=== PATIENT | male | born 1995 | race Caucasian/White ===

== ENCOUNTER 2019-11-20 03:31 | Emergency (ER) | payer BC, SELFPAY ==
[2019-11-20 03:52] VITALS: BP 130/82; PULSE 77; RESP 18; TEMP 36.7; O2SAT 100
[2019-11-20 04:08] LABS: Alanine Aminotransferase 25 U/L (4-50); Albumin Level 4.7 g/dL (3.5-5.1); Alkaline Phosphatase 61 U/L (38-126); Aspartate Amino Transferase 24 U/L (17-59); Bilirubin,Total 0.7 mg/dL (0.2-1.3); Blood Urea Nitrogen 14 mg/dL (9-20); Calcium 9.4 mg/dL (8.4-10.2); Carbon Dioxide 29 mmol/L (22-30); Chloride 101 mmol/L (98-107); Estimated CRCL calculation 106 ml/min; Estimated Glomerular Filt Rate > 60; Glucose 119 mg/dL (75-110); Potassium 3.7 mmol/L (3.4-5.0); Sodium 137 mmol/L (137-145)
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
--- NOTE | 2019-11-20 04:46 | PC.NURSE ---
charge nurse informed pt that his girlfriend would have to wait outside because of visitor policy of only one visitor in room and no changing out. pt became upset and stated he wanted to sign out. Dr. Huynh explained needs to pt for CT and poss further treatments. pt still declined to stay. pt signrd AMA paperwork and ambulated out of ER without difficulty.
[2019-11-20 04:49] VITALS: BP 124/73; PULSE 88; RESP 16; TEMP 36.8; O2SAT 100
== END 2019-11-20 04:50 | disposition left against medical advice (07) ==
PROVIDERS: Emergency Provider Emergency Medicine
DX: S00.93XA Contusion of unspecified part of head, initial encounter (principal); S50.311A Abrasion of right elbow, initial encounter; S40.211A Abrasion of right shoulder, initial encounter; V86.66XA Passenger of dirt bike or motor/cross bike injured in nontraffic accident, initial encounter
CPT/HCPCS: 36415; 80053; 99283

== ENCOUNTER 2023-10-30 12:07 | Emergency (ER) | payer BC, SELFPAY ==
--- NOTE | ~2023-10-30 | CT_ITS ---
EXAMINATION: CT facial bones w con DATE: 10/30/2023 14:37 INDICATION: Dental abscess. TECHNIQUE: Computed tomography (CT) of the facial bones and maxillofacial region was performed with 7 5 mL Omnipaque 350 intravenous contrast. Automated exposure control and iterative reconstruction tech [employer] were employed. The dose-length product was 602.34 mGy-cm. COMPARISON: None. FINDINGS: The orbits are normal. There is mild mucosal thickening in the paranasal sinuses. There is a carious lesion of tooth 7 with periapical lucencies and breech of the buccal cortex of the alveolar process with 6 x 2 mm subperiosteal abscess. There is a carious lesion of tooth 19. IMPRESSION: 1. Carious lesion of tooth 7 with periapical lucencies, breech of the buccal cortex of the alveolar p rocess, and small subperiosteal abscess. 2. Carious lesion of tooth 19. Reviewed, dictated and finalized at location A. IMPRESSION: 1. Carious lesion of tooth 7 with periapical lucencies, breech of the buccal co rtex of the alveolar process, and small subperiosteal abscess. 2. Carious lesion of tooth 19.
[2023-10-30 12:14] VITALS: BP 154/96; PULSE 113; RESP 16; TEMP 36.7; O2SAT 99
--- NOTE | 2023-10-30 13:39 | ED.DENTAL ---
HPI - Dental/Oral General Chief complaint: Dental/Oral Stated complaint: infected tooth Time Seen by Provider: 10/30/23 13:07 Source: patient Mode of arrival: ambulatory Limitations: no limitations History of Present Illness HPI Narrative: Keegan is a 28-year-old male patient presenting to the emergency room today with complaints of a possible dental infection. He reports he has swelling to the right upper maxilla. Has a fractured tooth right upper incisor-was seen it at [facility] urgent care on Thursday and given prescription for amoxicillin. States that the swelling and pain is getting worse. He denies any fever or chills. Related Data Allergies Allergy/AdvReac Type Severity Reaction Status Date / Time No Known Allergies Allergy Verified 10/30/23 12:28 Review of Systems Review of Systems: Pertinent positives per HPI. Patient denies any fever, chills, rash, headache, visual changes, dizziness, cough, runny nose, sore throat, shortness of breath, chest pain, palpitations, nausea, vomiting, diarrhea, constipation, abdominal pain, or any urinary issues. [facility] Past Medical History Medical History Patient denies significant medical history Social History Social History Smoking status: Current every day smoker Comments At the time of my signature, I reviewed and agree with the nursing past medical, surgical, social, and family history. There is no relevant family history pertinent to the patient complaint. Exam Narrative: General: Well-developed, well nourished, in no apparent distress Head: Normocephalic, atraumatic Eyes: Pupils equally round and reactive to light bilaterally, EOM intact, sclera and conjunctive clear, no discharge, lids normal Ears: TMs intact and clear, ear canals clear, no drainage, grossly hearing normal. Nose: Nares patent, no discharge, no inflammation, no sinus tenderness. Mouth: Oropharynx without lesions or masses, poor dentition, MMM. Gingival swelling to the right upper gum with fractured tooth mild palpation-questionable abscess, tender to us to palpation with mild swelling over the right maxilla compared to the left Neck: Supple, trachea midline, no enlargement of anterior or posterior cervical nodes, no thyroid masses or goiter palpable. Cardio: Regular rate and rhythm, s1 and s2 normal, no murmur appreciated. Resp: Clear to auscultation bilaterally anteriorly and posteriorly, no rhonchi, rales, wheezing or rubs Course Course Emergency Course: Portions of this record may have been created with voice recognition software. Vital Signs Vital signs: Vital Signs Temperature 36.7 C 10/30/23 12:14 Pulse Rate 113 H 10/30/23 12:14 Respiratory Rate 16 10/30/23 12:14 Blood Pressure 154/96 H 10/30/23 12:14 Pulse Oximetry 99 10/30/23 12:14 Temperature 36.7 C 10/30/23 12:14 Pulse Rate 113 H 10/30/23 12:14 Respiratory Rate 16 10/30/23 12:14 Blood Pressure 154/96 H 10/30/23 12:14 Pulse Oximetry 99 10/30/23 12:14 Vital signs reviewed Procedures Abscess I/D Dental abscess: Date of Incision: 10/30/23 Time of Incision: 15:45 Side (if applicable): right Local Anesthetic: lidocaine 1% Amount of anesthesia used (mL): 0.05 Technique: needle aspiration Amount of fluid expressed (mL): 0.5 Irrigation: No Packing used?: none I&D Results: Pus and Blood Abcess I&D Additional Comments: Dental abscess was injected using 0.5 mL of lidocaine without epi. Patient tolerated fair. An 18 gauge needle was then used to aspirate abscess. 0.5 mL of pus was expressed. Patient tolerated fair. MDM - Dental/Oral MDM Narrative Medical decision making narrative: At the time of visit patient is resting comfortably on the exam table. Patient appears to be nontoxic. Labs: CBC shows wh
[2023-10-30 14:01] LABS: Basophils Absolute Auto 0.1 K/mm3 (0.0-0.1); Basophils Percent Auto 0.4 % (0.2-1.2); Eosinophils Absolute Auto 0.5 K/mm3 (0-0.3); Eosinophils Percent Auto 3.5 % (0-4.4); Hematocrit 56.5 % (42.0-52.0); Hemoglobin 18.4 g/dL (14.0-18.0); Immature Granulocyte Absolute 0.07 K/mm3 (0.00-0.031); Immature Granulocyte Percent A 0.5 % (0-0.5); Lymphocytes Absolute Auto 2.85 K/mm3 (0.9-3.2); Lymphocytes Percent Auto 22.2 % (18.3-44.2); Mean Corpuscular HGB Conc 32.6 g/dl (32-36); Mean Corpuscular Hemoglobin 28.7 pg (26-34); Mean Corpuscular Volume 88.1 fl (80-100); Mean Platelet Volume 10.6 fl (7.4-10.4); Monocytes Absolute Auto 1.1 K/mm3 (0.1-0.6); Monocytes Percent Auto 8.2 % (2.6-8.5); Neutrophils Absolute Auto 8.4 K/mm3 (1.3-6.7); Neutrophils Percent Auto 65.2 % (45.5-73.1); Platelet Count Result 229 k/mm3 (150-375); Red Blood Count 6.41 M/mm3 (4.6-6.20); Red Cell Distribution Width 14.1 % (11.5-14.5); White Blood Count 12.8 K/mm3 (4.5-10.0)
[2023-10-30 14:14] LABS: Alanine Aminotransferase 24 U/L (6-50); Albumin Level 4.6 g/dL (3.5-5.1); Alkaline Phosphatase 54 U/L (38-126); Anion Gap 8 mmol/L (4-12); Aspartate Amino Transferase 32 U/L (17-59); Bilirubin,Total 0.7 mg/dL (0.2-1.3); Blood Urea Nitrogen 15 mg/dL (9-20); Calcium 9.1 mg/dL (8.4-10.2); Carbon Dioxide 27 mmol/L (22-30); Chloride 101 mmol/L (98-107); Estimated CRCL calculation 126 ml/min; Estimated Glomerular Filt Rate > 60; Glucose 100 mg/dL (65-110); Potassium 4.3 mmol/L (3.4-5.0); Sodium 136 mmol/L (137-145)
[2023-10-30] MEDS: CLINDAMYCIN 600 MG/D5W 50 ML 600 MG/50 ML PIGGYBACK 100 MG IVPB (16:07)
[2023-10-30] MEDS: IBUPROFEN 400 MG TABLET 800 MG PO (16:07)
[2023-10-30 16:32] VITALS: BP 168/99; PULSE 99; RESP 20; O2SAT 94
== END 2023-10-30 16:34 | disposition home or self-care (01) ==
PROVIDERS: Emergency Provider Nurse Practitioner Family
DX: K04.7 Periapical abscess without sinus (principal); F17.200 Nicotine dependence, unspecified, uncomplicated
CPT/HCPCS: 36415; 41800; 70487; 80053; 85025; 96365; 99284; A9270; Q9967

== ENCOUNTER 2024-12-12 19:59 | Emergency (ER) | payer BC, SELFPAY ==
--- NOTE | ~2024-12-12 | CT_ITS ---
EXAMINATION: CT facial bones wo con DATE: 12/12/2024 21:01 INDICATION: nasal trauma . TECHNIQUE: Computed tomography (CT) of the facial bones and maxillofacial region was performed withou t intravenous contrast. Automated exposure control and iterative reconstruction technique were employ ed. The dose-length product was 820.78 mGy-cm. COMPARISON: 10/30/2023. FINDINGS: Soft Tissues: Soft tissue swelling and subcutaneous gas over the nose. Facial bones: Nondisplaced fractures of the bilateral nasal bones. Nondisplaced fractures of the ant erosuperior and posterior inferior osseous nasal septum. No lytic or blastic process. Eyes: The globes are intact. The soft tissue planes of the orbits are maintained. Paranasal Sinuses: The visualized aerated spaces are clear. Foreign Bodies: No radiopaque foreign bodies. Other Findings: Periodontal disease. IMPRESSION: Nondisplaced fractures of the bilateral nasal bones and osseous nasal septum. Reviewed, dictated and finalized at location K.
--- OUTSIDE RECORDS SUMMARY | 2024-12-12 20:02 | XMS_ITS | Clinical Summary ---
Author Organization [facility] Address [address] [place] [address] Care Team Providers Care Pool Lifeguard Name Role Phone Unknown, Notinfile Primary Care Provider Unavail able Allergies No known active allergies Medications No known medications Active Problems No known active problems Medical History Medical History Date Comments Seizure (HCC) Adhd Social History Tobacco Use Types Packs/Day Years Used Date Smoking Tobacco: Every Day Cigarettes Tobacco Cessation:Ready to Q uit: Not Asked; Counseling Given: Not Answered Alcohol Use Standard Drinks/Week Comments Yes 0 (1 standard drink = 0.6 oz pur e alcohol) occasionally Personal Safety Answer Date Recorded Have you ever been in or are you currently in a harmful physical or emotional relationship or is someone making you feel afraid or unsafe? Denies 05/06/2023 Sex and Gender Information Value Date Recorded Sex Assigned at Not on file Legal Sex Male 10:59 AM CDT Gender Identity Not on file Sexual Orientation Not on file Obstetrics History Last Filed Vital Signs Vital Sign Reading Time Taken Comments Blood Pressure 135/104 05/06/2023 8:47 AM MEETING MANAGER Pulse 63 05/06/2023 8:47 AM MEETING MANAGER Temperature 36.9 C (98.4 F) 05/06/2023 8:47 AM MEETING MANAGER Respiratory Rate 16 05/06/2023 8:47 AM MEETING MANAGER Oxygen Saturation 96% 05/06/2023 8:47 AM MEETING MANAGER Inhaled Oxygen Concentration - - Weight 90.7 kg (200 lb) 05/06/2023 8:47 AM MEETING MANAGER Height 172.7 cm (5' 8) 05/06/2023 8:47 AM MEETING MANAGER Body Mass Index 30.41 05/06/2023 8:47 AM MEETING MANAGER Plan of Treatment Health Maintenance Due Date Last Done Comments Depression Screening 1995 Hepatitis C Screening 1995 Regular Well Visit/Exam 18-64 2013 HPV Vaccines (3 - Male 3-dos e series) 01/20/2014 10/28/2013, 07/24/2010 Pneumococcal vaccine <65 (1 of 2 - PCV) 2014 DTaP/Tdap/Td Vaccine (8 - Td or Tdap) 08/27/2022 08/27/2012, 07/24/2010, 03/01/2007, Additional history exists Influenza Vaccine (Season Ended) 2025 Hepatitis B Screening Completed 1995 , 1995, 1995 Varicella Vaccines Completed 08/27/2012, 07/06/1996 Insurance PLAN PLAN Care Teams Pool Lifeguard Relationship Specialty Start Date End Date Unknown, Notinfile PCP - General 12/21/19
--- OUTSIDE RECORDS SUMMARY | 2024-12-12 20:02 | XMS_ITS | Referral Summary ---
Author Organization [facility] Address [address] [place] [address] Care Team Providers Care Auger Operator Name Role Phone Unknown, Notinfile Primary Care Provider Unavail able Allergies No known active allergies Medications No known medications Active Problems No known active problems Social History Tobacco Use Types Packs/Day Years [...] on file Sexual Orientation Not on file Last Filed Vital Signs Vital Sign Reading Time Taken Comments Blood Pressure 135/104 05/06/2023 8:47 AM LINUX SYSTEM ADMINISTRATOR Pulse 63 05/06/2023 8:47 AM LINUX SYSTEM ADMINISTRATOR Temperature 36.9 C (98.4 F) 05/06/2023 8:47 AM LINUX SYSTEM ADMINISTRATOR Respiratory Rate 16 05/06/2023 8:47 AM LINUX SYSTEM ADMINISTRATOR Oxygen Saturation 96% 05/06/2023 8:47 AM LINUX SYSTEM ADMINISTRATOR Inhaled Oxygen Concentration - - Weight 90.7 kg (200 lb) 05/06/2023 8:47 AM LINUX SYSTEM ADMINISTRATOR Height 172.7 cm (5' 8) 05/06/2023 8:47 AM LINUX SYSTEM ADMINISTRATOR Body Mass Index 30.41 05/06/2023 8:47 AM LINUX SYSTEM ADMINISTRATOR Plan of Treatment Not on file Insurance [place] [address] [address] [place] [address] PLAN Care Teams Auger Operator Relationship Specialty Start Date End Date Unknown, Notinfile PCP - General 12/21/19
--- OUTSIDE RECORDS SUMMARY | 2024-12-12 20:02 | XMS_ITS | Clinical Summary ---
Author Organization [facility] Address [address] [place] [address] Care Team Providers Care Head Mva Reactor Operator Name Role Phone None, Provider MD Primary Care Provider Unavaila ble Allergies No known active allergies Social History Tobacco Use Types Packs/Day Years Used Date Smoking Tobacco: Never Assessed Sex and Gender Information Value Date Recorded Sex Assigned at Not on file Legal Sex Male 5:53 PM REMEDIAL TEACHER Gender Identity Not on file Sexual Orientation Not on file Last Filed Vital Signs Vital Sign Reading Time Taken Comments Blood Pressure 134/71 05/20/2022 10:24 PM REMEDIAL TEACHER Pulse 92 05/20/2022 10:24 PM REMEDIAL TEACHER Temperature 36.8 C (98.2 F) 05/20/2022 10:24 PM REMEDIAL TEACHER Respiratory Rate 18 05/20/2022 10:24 PM REMEDIAL TEACHER Oxygen Saturation 97% 05/20/2022 10:24 PM REMEDIAL TEACHER Inhaled Oxygen Concentration - - Weight 99.8 kg (220 lb 0.3 oz) 05/20/2022 10:24 PM REMEDIAL TEACHER Height 175.3 cm (5' 9) 05/20/2022 10:24 PM REMEDIAL TEACHER Body Mass Index 32.49 05/20/2022 10:24 PM REMEDIAL TEACHER Plan of Treatment Health Maintenance Due Date Last Done Comments Annual Physical 1998 Hepatitis C 2013 HPV Vaccines (3 - Male 3-dose series) 01/20/2014 10/28/2013, 07/24/2010 DTaP, Tdap and Td Vaccines (4 - Td or Tdap) 08/27/2022 08/27/2012, 07/24/2010, 03/01/2007, Additional history exists COVID-19 Vaccine ( season) 2024 Hepatitis B Vaccines Completed 1995, 1995, 1995 Meningococcal Vaccine Completed 08/27/2012 , 07/24/2010, 03/01/2007 Meningococcal B Vaccine Aged Out No l onger eligible based on patient's age to complete this topic Pneumococcal Vaccine: Pediatrics (0 to 5 Years) and At-Risk Patients (6 to 49 Years) Aged Out No longer eligible based on patient's age to complete this topic RSV Immunizations Under 20 Months Aged Out No longer eligible based on patient's age to complete this topic Insurance [address] [address] Care Teams Head Mva Reactor Operator Relationship Specialty Start Date End Date None, Provider, PCP - General UNKNOWN PHYSICIAN SPECIALTY 05/20/22
[2024-12-12 20:04] VITALS: BP 164/96; PULSE 101; RESP 18; TEMP 36.6; O2SAT 97
--- OUTSIDE RECORDS SUMMARY | 2024-12-12 20:58 | XMS_ITS | Clinical Summary ---
Author Organization [facility] Address [address] [place] [address] Care Team Providers Care Automatic Presser Name Role Phone Unknown, Notinfile Primary Care [...] Comments Blood Pressure 135/104 05/06/2023 8:47 AM WEB PRESS ROLL TENDER Pulse 63 05/06/2023 8:47 AM WEB PRESS ROLL TENDER Temperature 36.9 C (98.4 F) 05/06/2023 8:47 AM WEB PRESS ROLL TENDER Respiratory Rate 16 05/06/2023 8:47 AM WEB PRESS ROLL TENDER Oxygen Saturation 96% 05/06/2023 8:47 AM WEB PRESS ROLL TENDER Inhaled Oxygen Concentration - - Weight 90.7 kg (200 lb) 05/06/2023 8:47 AM WEB PRESS ROLL TENDER Height 172.7 cm (5' 8) 05/06/2023 8:47 AM WEB PRESS ROLL TENDER Body Mass Index 30.41 05/06/2023 8:47 AM WEB PRESS ROLL TENDER Plan of Treatment Health Maintenance Due Date [...] 08/27/2012, 07/06/1996 Insurance PLAN PLAN Care Teams Automatic Presser Relationship Specialty Start Date End Date Unknown, Notinfile PCP - General 12/21/19
--- OUTSIDE RECORDS SUMMARY | 2024-12-12 20:58 | XMS_ITS | Referral Summary ---
Author Organization [facility] Address [address] [place] [address] Care Team Providers Care Planer Setter Name Role Phone Unknown, Notinfile Primary Care [...] Comments Blood Pressure 135/104 05/06/2023 8:47 AM RING ROLLING MACHINE OPERATOR Pulse 63 05/06/2023 8:47 AM RING ROLLING MACHINE OPERATOR Temperature 36.9 C (98.4 F) 05/06/2023 8:47 AM RING ROLLING MACHINE OPERATOR Respiratory Rate 16 05/06/2023 8:47 AM RING ROLLING MACHINE OPERATOR Oxygen Saturation 96% 05/06/2023 8:47 AM RING ROLLING MACHINE OPERATOR Inhaled Oxygen Concentration - - Weight 90.7 kg (200 lb) 05/06/2023 8:47 AM RING ROLLING MACHINE OPERATOR Height 172.7 cm (5' 8) 05/06/2023 8:47 AM RING ROLLING MACHINE OPERATOR Body Mass Index 30.41 05/06/2023 8:47 AM RING ROLLING MACHINE OPERATOR Plan of Treatment Not on file [place] [address] [place] [address] PLAN Care Teams Planer Setter Relationship Specialty Start Date End Date Unknown, Notinfile PCP - General 12/21/19
--- OUTSIDE RECORDS SUMMARY | 2024-12-12 20:58 | XMS_ITS | Clinical Summary ---
Author Organization [facility] Address [address] [place] [id number] Care Team Providers Care Patent Prosecution Attorney Name Role Phone None, Provider MD Primary Care Provider Unavaila ble Allergies No known active allergies Social History Tobacco Use Types Packs/Day Years Used Date Smoking Tobacco: Never Assessed Sex and Gender Information Value Date Recorded Sex Assigned at Not on file Legal Sex Male 5:53 PM AFLOAT CRYPTOLOGIC MANAGER Gender Identity Not on file Sexual Orientation Not on file Last Filed Vital Signs Vital Sign Reading Time Taken Comments Blood Pressure 134/71 05/20/2022 10:24 PM AFLOAT CRYPTOLOGIC MANAGER Pulse 92 05/20/2022 10:24 PM AFLOAT CRYPTOLOGIC MANAGER Temperature 36.8 C (98.2 F) 05/20/2022 10:24 PM AFLOAT CRYPTOLOGIC MANAGER Respiratory Rate 18 05/20/2022 10:24 PM AFLOAT CRYPTOLOGIC MANAGER Oxygen Saturation 97% 05/20/2022 10:24 PM AFLOAT CRYPTOLOGIC MANAGER Inhaled Oxygen Concentration - - Weight 99.8 kg (220 lb 0.3 oz) 05/20/2022 10:24 PM AFLOAT CRYPTOLOGIC MANAGER Height 175.3 cm (5' 9) 05/20/2022 10:24 PM AFLOAT CRYPTOLOGIC MANAGER Body Mass Index 32.49 05/20/2022 10:24 PM AFLOAT CRYPTOLOGIC MANAGER Plan of Treatment Health Maintenance Due [...] patient's age to complete this topic [place] [address] [place] [address] Care Teams Patent Prosecution Attorney Relationship Specialty Start Date End Date None, Provider, PCP - General UNKNOWN PHYSICIAN SPECIALTY 05/20/22
--- NOTE | 2024-12-12 21:56 | ED_ITS ---
HPI - Head Injury General Chief complaint: Head Injury Stated complaint: door fell on nose Time Seen by Provider: 12/12/24 20:37 History of Present Illness HPI Narrative: 29-year-old otherwise healthy male presenting to the emergency department after a nasal injury. Patient was hanging a heavy steel door when it became unsteady and fell onto his nose. He had an obvious nasal fracture and displacement laterally that he corrected by himself. He has some minor epistaxis that he tried to plug with cotton. Patient denies any other signs of trauma or other injuries. No loss of consciousness. No anticoagulation use. He was otherwise in his normal state of health. Able to breathe through his nose and swallow without difficulty. No fully secretions or blood in the posterior oropharynx or down his throat. Denies any other symptoms at this time. Related Data Allergies Allergy/AdvReac Type Severity Reaction Status Date / Time No Known Allergies Allergy Verified 12/12/24 20:36 Review of Systems Review of Systems: As reviewed above in HPI [facility] Past Medical History Medical History Patient denies significant medical history Social History Social History Smoking status: Current every day smoker Exam Narrative: GENERAL: [Well-appearing, well-nourished, and in no acute distress.] HEAD: [Normocephalic, atraumatic.] EYES: [PERRLA and EOMI.] ENT: Nasal deformity mild, swelling around the bridge of the nose, epistaxis evident with some scant bleeding out of the right naris, no bleeding at the left naris. Mild tenderness to palpation around the structures of the nasal bridge. Breathing comfortably, no posterior oropharyngeal bleeding or swelling. NECK: Supple. CHEST: [Clear to auscultation. No respiratory distress.] HEART: [Regular rate and rhythm]. No murmur heard. [Normal peripheral pulses.] ABDOMEN: [Soft, nondistended], [nontender], [No rigidity or guarding] EXTREMITIES: Normal range of motion. [No edema.] SKIN: Warm, dry, no rash. NEURO: [No focal deficits]. Alert and oriented [x3.] PSYCH: [Normal mood and affect.] Course Vital Signs Vital signs: Vital Signs Temperature 36.6 C 12/12/24 20:04 Pulse Rate 101 H 12/12/24 20:04 Respiratory Rate 18 12/12/24 20:04 Blood Pressure 164/96 H 12/12/24 20:04 Pulse Oximetry 97 12/12/24 20:04 Oxygen Delivery Room Air 12/12/24 20:04 Temperature 36.6 C 12/12/24 20:04 Pulse Rate 101 H 12/12/24 20:04 Respiratory Rate 18 12/12/24 20:04 Blood Pressure 164/96 H 12/12/24 20:04 Pulse Oximetry 97 12/12/24 20:04 Oxygen Delivery Room Air 12/12/24 20:04 Procedures Epistaxis Control right: Epistaxis Control Date: 12/12/24 Epistaxis Control Time: 21:20 Time Out Performed: Yes Nose Prepped With: oxymetazoline Direct Inspection: yes and anterior source identified Clots Removed by: manually Cautery Used: none Patient Tolerated Procedure: well and no complications Epistaxis Control Narrative: Multiple Afrin sprays into the bilateral nares with epistaxis control achieved. MDM - Head Injury MDM Narrative Medical decision making narrative: 29-year-old otherwise healthy male presenting to the emergency department after a nasal injury. Patient was hanging a heavy steel door when it became unsteady and fell onto his nose. He had an obvious nasal fracture and displacement laterally that he corrected by himself. He has some minor epistaxis that he tried to plug with cotton. Patient denies any other signs of trauma or other injuries. No loss of consciousness. No anticoagulation use. He was otherwise in his normal state of health. Able to breathe through his nose and swallow without difficulty. No fully secretions or blood in the posterior oropharynx or down his throat. Denies any other symptoms at this time. Nasal deformity mild, swelling around the bridge of the nose, epistaxis evident with some scant bleeding out of the right naris, no bleeding at the left naris. Mild tenderness to palpation around the structures of the nasal bridge. Breathing comfortably, no posterior oropharyngeal bleeding or swelling. Patient given Afrin for his minor epistaxis. CT scans were obtained that confirmed bilateral nasal fractures without displacement as well as a septal fracture. Patient given appropriate precautions including nasal blowing and pain control. Bleeding controlled. He was given Afrin for up to 3 days to use for his swelling and congestion as well as any recurrent bleeding. He was given ENT follow-up instructions and return precautions for Discharge Plan Discharge Clinical Impression: Closed fracture nasal bone, Epistaxis due to trauma Patient Disposition: Home Condition: Stable Instructions: Antibiotic Form, Nasal Fracture (ED) Additional Instructions: Nondisplaced fractures of the bilateral nasal bones and osseous nasal septum. Refrain from blowing your nose for up to 4 weeks to allow these to heal. No signs of deviation or displacement. Take anti-inflammatory such as Tylenol and ibuprofen for pain and swelling control. He can take decongestants for any nasal symptoms in addition to the Afrin and if you have any recurrent nose bleeding. Do not take the Afrin for more than 3 days. Patient Language: Citizen Of [place] Prescriptions: No Action clindamycin HCl 300 mg capsule 300 mg PO Q8H 10 Days Qty: 30 0RF ibuprofen 800 mg tablet 800 mg PO TID PRN (Reason: pain) 10 Days Qty: 30 0RF Follow-up/Referrals: Lyle Garcia MD [Physician] - 1 Week (Nondisplaced fractures of the bilateral nasal bones and osseous nasal septum.) PHYSICIAN,PARAPLANNER [Primary Care Provider] - Time of Disposition: 21:55
[2024-12-12] MEDS: OXYMETAZOLINE HCL 0.05% NAS 15 ML BTL (*BKC) 4 SPRAY NASAL (22:04)
== END 2024-12-12 22:13 | disposition home or self-care (01) ==
PROVIDERS: Emergency Provider Student in an Organized Health Care Education/Training Program
DX: S02.2XXA Fracture of nasal bones, initial encounter for closed fracture (principal); R04.0 Epistaxis; W20.8XXA Other cause of strike by thrown, projected or falling object, initial encounter; F17.200 Nicotine dependence, unspecified, uncomplicated
CPT/HCPCS: 70486; 99284; A9270